=== PATIENT | female | born 2000 | race Caucasian/White ===

== ENCOUNTER 2024-04-10 21:39 | Inpatient (IN) | payer BC, SELFPAY ==
[2024-04-10 22:25] VITALS: BMI 23.6
[2024-04-10 22:47] LABS: Fetal Membranes Rupture RUPTURE DETECTED (No Rupture)
[2024-04-10] MEDS ORDERED: Penicillin G Potassium 5 MILL.UNITS VIAL ONE (23:15)
[2024-04-10] MEDS ORDERED: Misoprostol 200 MCG TAB PR PRN (23:20)
[2024-04-10] MEDS ORDERED: fentaNYL 50 mcg/mL 1 mL Vial SLOW IVP PRN (23:20)
[2024-04-10] MEDS ORDERED: Tranexamic Acid 1,000 MG/10 ML VIAL IVP PRN (23:20)
[2024-04-10] MEDS ORDERED: hydrALAZINE 20 MG/ML VIAL SLOW IVP PRN (23:20)
[2024-04-10] MEDS ORDERED: Carboprost 250 MCG/ML AMP IM PRN (23:20)
[2024-04-10] MEDS ORDERED: Diphenoxylate HCl/Atropine Tablet PO PRN ×2 (23:20)
[2024-04-10] MEDS ORDERED: Methylergonovine 0.2 MG/ML VIAL IM PRN (23:20)
[2024-04-10] MEDS ORDERED: Ondansetron PF 4 MG/2 ML Vial IVP PRN (23:20)
[2024-04-10] MEDS ORDERED: Promethazine HCl 25 MG/ML VIAL IM PRN (23:20)
[2024-04-10] MEDS ORDERED: Lidocaine 1% (PF) 30 ML VIAL SC PRN (23:20)
[2024-04-10] MEDS ORDERED: Misoprostol 100 MCG TAB VAG SCH (23:30)
[2024-04-10] MEDS ORDERED: Penicillin G Potassium 5 MILL.UNITS in Sodium Chloride 0.9% 100 ML IVPB SCH (23:30)
[2024-04-10] MEDS ORDERED: Lactated Ringer's 1,000 ML IV SCH (23:30)
[2024-04-10] MEDS ORDERED: Oxytocin 30 units/NS 500 ML 500 ML IV SCH ×2 (23:30)
[2024-04-10 23:37] LABS: Hematocrit 33.3 % (34.9-44.5); Hemoglobin 12.1 g/dL (12.0-15.5); Mean Corpuscular HGB CONC 36.3 g/dL (32.0-36.0); Mean Corpuscular Hemoglobin 36.7 pg (27.0-33.0); Mean Corpuscular Volume 100.9 fL (81.6-98.3); Mean Platelet Volume 12.4 fL (7.4-10.4); Platelet Count 141 10x3/uL (150-450); RBC Distribution Width 11.9 % (11.5-14.5); White Blood Cell (WBC) Count 9.71 10x3/uL (3.5-10.5)
[2024-04-11 00:07] LABS: HIV (1/2) Antibody/Antigen Non-Reactive (NonReactive); HIV 1/2 INDEX 0.13 S/CO (<1.00)
[2024-04-11 00:09] LABS: Syphilis Antibody Nonreactive (Nonreactive); Syphilis Antibody Index 0.05 S/CO (<1.00 Non-Reactive)
[2024-04-11 00:10] LABS: HBsAg Index 0.21 S/CO (0-0.99); Hep B Surf Ag - L&D Non-Reactive S/CO (NonReactive)
[2024-04-11] MEDS ORDERED: Boostrix 0.5 ML (Tdap) VIAL (>/=7 yrs of age) IM ONE (01:09)
[2024-04-11] MEDS ORDERED: Benzocaine-Menthol 82.5 ML CAN TOP PRN (01:09)
[2024-04-11] MEDS ORDERED: Preparation H Ointment 28 GM TUBE PR PRN (01:09)
[2024-04-11] MEDS: Ibuprofen 800 MG TAB PO PRN ×2 (03:25→13:28)
[2024-04-11] MEDS ORDERED: Penicillin G 2.5 MILL.units 2.5 MILL.UNITS in Premix 1 BAG IVPB SCH (03:30)
[2024-04-11] MEDS: Acetaminophen 500 MG TAB PO PRN (08:18)
[2024-04-11] MEDS: Polyethylene Glycol 3350 17 GM Packet PO SCH (08:19)
[2024-04-11] MEDS: Ferrous Sulfate 325 MG TAB PO SCH (13:32)
[2024-04-12] MEDS: Docusate 100 MG CAP PO PRN (07:41)
[2024-04-13 07:57] VITALS: BP 124/72; TEMP 97.1
== END 2024-04-13 18:05 | disposition home or self-care (01) | DRG 807 ==
LOC: CSHLD/OP 21:39 → CSHLD 23:20 → CSHPED 04-11 03:37
PROVIDERS: ADMIT Emergency Medicine; ATTEND Emergency Medicine
PROC: 10E0XZZ Delivery of Products of Conception, External Approach (ICD-10-PCS; principal; 2024-04-11)
PROC: 0UQMXZZ Repair Vulva, External Approach (ICD-10-PCS; 2024-04-11)
DX: O42.02 Full-term premature rupture of membranes, onset of labor within 24 hours of rupture (principal); Z37.0 Single live birth; O99.824 Streptococcus B carrier state complicating childbirth; Z3A.36 36 weeks gestation of pregnancy; Z20.1 Contact with and (suspected) exposure to tuberculosis; O69.1XX0 Labor and delivery complicated by cord around neck, with compression, not applicable or unspecified; O70.0 First degree perineal laceration during delivery
CPT/HCPCS: 84112; 85027; 86780; 86850; 86900; 86901; 87340; 87389; 99285; J2540